=== PATIENT | female | born 1955 | race Caucasian/White ===

== ENCOUNTER 2023-03-16 13:17 | Outpatient (CLI) | payer MEDICARE | END 2023-03-16 13:18 | disposition home or self-care (01) | LOC: SCSMRI 13:17 | PROVIDERS: ATTEND Family Medicine | DX: M25.521 Pain in right elbow (principal); M77.8 Other enthesopathies, not elsewhere classified; R60.0 Localized edema ==

== ENCOUNTER 2025-03-29 14:35 | Outpatient (CLI) | payer MEDICARE | END 2025-03-29 14:36 | disposition home or self-care (01) | LOC: SCSBT 14:35 | PROVIDERS: ATTEND Nurse Practitioner Family | DX: Z78.0 Asymptomatic menopausal state (principal) | CPT/HCPCS: 77080 ==

== ENCOUNTER 2025-05-05 14:02 | Emergency (ER) | payer MEDICARE | END 2025-05-05 16:55 | disposition home or self-care (01) | LOC: ERS 14:02 | DX: M47.814 Spondylosis without myelopathy or radiculopathy, thoracic region (principal); M51.34 Other intervertebral disc degeneration, thoracic region; I10 Essential (primary) hypertension | CPT/HCPCS: 96374 ==